=== PATIENT | female | born 1990 | race Hispanic/Latino ===

== ENCOUNTER 2019-12-09 15:37 | Emergency (ER) | payer OTHER ==
[2019-12-09 16:33] LABS: RAPID GROUP A STREP NEGATIVE (NEGATIVE)
== END 2019-12-09 17:21 | disposition home or self-care (01) ==
LOC: EDH 15:37
DX: J11.1 Influenza due to unidentified influenza virus with other respiratory manifestations (principal); Z72.0 Tobacco use
CPT/HCPCS: 87804; 87880

== ENCOUNTER 2023-01-07 19:15 | Emergency (ER) | payer SELFPAY ==
[~2023-01-07] VITALS: Ht 154.9 cm; Wt 70.8 kg
[2023-01-07 20:51] VITALS: BP 156/105
[2023-01-07] MEDS ORDERED: LIDOCAINE HCL 1% 20 ML VIAL MISC SCH (21:30)
[2023-01-07] MEDS ORDERED: TETANUS/DIPHTHERIA TOXOID [ADULT] 0.5 ML VIAL IM ONE (21:30)
[2023-01-07] MEDS ORDERED: BACITRACIN 1 EACH PACKET TP ONE ×2 (22:30→22:40)
== END 2023-01-07 22:44 | disposition home or self-care (01) ==
LOC: EDH 19:15
DX: S61.411A Laceration without foreign body of right hand, initial encounter (principal); X58.XXXA Exposure to other specified factors, initial encounter; Y93.89 Activity, other specified; Y92.89 Other specified places as the place of occurrence of the external cause; Y99.8 Other external cause status
CPT/HCPCS: 12001; 73120; 90471; 90714